=== PATIENT | male | born 1990 | race African-American/Black ===

== ENCOUNTER 2017-08-25 07:18 | Emergency (ER) | payer OTHER ==
[2017-08-25] MEDS: KETOROLAC 60 MG/2 ML VIAL (J1885) IM (07:46)
== END 2017-08-25 08:35 | disposition home or self-care (01) ==
LOC: M ED 07:18
DX: S39.002A Unspecified injury of muscle, fascia and tendon of lower back, initial encounter (principal); X50.0XXA Overexertion from strenuous movement or load, initial encounter; Y92.89 Other specified places as the place of occurrence of the external cause; Y99.1 Military activity
CPT/HCPCS: J1885